=== PATIENT | female | born 1975 | race Caucasian/White ===

== ENCOUNTER 2016-05-04 10:47 | Emergency (ER) | payer MEDICAID | END 2016-05-04 12:05 | disposition home or self-care (01) | LOC: D.ER 10:47 | DX: N75.1 Abscess of Bartholin's gland (principal); D25.9 Leiomyoma of uterus, unspecified; K21.9 Gastro-esophageal reflux disease without esophagitis; I10 Essential (primary) hypertension; F32.9 Major depressive disorder, single episode, unspecified ==

== ENCOUNTER 2017-02-04 15:13 | Emergency (ER) | payer SELFPAY | END 2017-02-04 17:46 | disposition home or self-care (01) | LOC: D.ER 15:13 | DX: S83.92XA Sprain of unspecified site of left knee, initial encounter (principal); W19.XXXA Unspecified fall, initial encounter; Y93.89 Activity, other specified; Y92.029 Unspecified place in mobile home as the place of occurrence of the external cause; K21.9 Gastro-esophageal reflux disease without esophagitis; I10 Essential (primary) hypertension; F17.200 Nicotine dependence, unspecified, uncomplicated ==

== ENCOUNTER 2017-04-19 14:59 | Emergency (ER) | payer MEDICAID | END 2017-04-19 16:21 | disposition home or self-care (01) | LOC: D.ER 14:59 | DX: R07.89 Other chest pain (principal); K21.9 Gastro-esophageal reflux disease without esophagitis; I10 Essential (primary) hypertension ==

== ENCOUNTER 2017-08-20 11:51 | Emergency (ER) | payer MEDICAID | END 2017-08-20 15:06 | disposition home or self-care (01) | LOC: D.ER 11:51 | DX: L03.213 Periorbital cellulitis (principal); H10.31 Unspecified acute conjunctivitis, right eye; F17.200 Nicotine dependence, unspecified, uncomplicated; K21.9 Gastro-esophageal reflux disease without esophagitis; I10 Essential (primary) hypertension ==

== ENCOUNTER 2018-04-27 14:46 | Emergency (ER) | payer SELFPAY ==
[~2018-04-27] VITALS: Ht 162.6 cm; Wt 113.6 kg
[2018-04-27 14:56] VITALS: Ht 162.6 cm; Wt 113.6 kg
[2018-04-27] MEDS ORDERED: CYCLOBENZAPRINE10 MG PO (17:49)
[2018-04-27] MEDS ORDERED: IBUPROFEN800 MG PO (17:49)
[2018-04-27 18:36] VITALS: BP 156/82
== END 2018-04-27 18:37 | disposition home or self-care (01) ==
LOC: D.ER 14:46
DX: M54.5 Low back pain (principal); M54.31 Sciatica, right side; F17.200 Nicotine dependence, unspecified, uncomplicated